=== PATIENT | male | born 1955 | race Caucasian/White ===

== ENCOUNTER 2020-11-14 09:35 | Outpatient (CLI) | payer MEDICARE | END 2020-11-14 09:36 | disposition home or self-care (01) | LOC: CSHWCC 09:35 | PROVIDERS: ATTEND Nurse Practitioner Family | DX: I87.331 Chronic venous hypertension (idiopathic) with ulcer and inflammation of right lower extremity (principal); I87.2 Venous insufficiency (chronic) (peripheral); L97.211 Non-pressure chronic ulcer of right calf limited to breakdown of skin; L97.811 Non-pressure chronic ulcer of other part of right lower leg limited to breakdown of skin; L03.115 Cellulitis of right lower limb; E78.5 Hyperlipidemia, unspecified; I48.91 Unspecified atrial fibrillation; R60.0 Localized edema; E66.01 Morbid (severe) obesity due to excess calories | CPT/HCPCS: 99213; G0463 ==